=== PATIENT | male | born 1980 | race African-American/Black ===

== ENCOUNTER 2017-11-17 20:46 | Emergency (ER) | payer OTHER ==
[~2017-11-17] VITALS: Ht 175.3 cm; Wt 92.1 kg
== END 2017-11-17 22:51 | disposition home or self-care (01) ==
LOC: ER 20:46
DX: R21 Rash and other nonspecific skin eruption (principal); T78.49XA Other allergy, initial encounter; L03.115 Cellulitis of right lower limb

== ENCOUNTER 2017-12-18 03:59 | Emergency (ER) | payer OTHER ==
[~2017-12-18] VITALS: Ht 175.3 cm; Wt 90.7 kg
[2017-12-18] MEDS ORDERED: INTESTINEX680 M1 PO (04:26)
[2017-12-18] MEDS ORDERED: AMOX-CLAV 875-1 EACH PO (04:26)
[2017-12-18] MEDS ORDERED: KETO10TA2 PO (04:26)
== END 2017-12-18 04:56 | disposition home or self-care (01) ==
LOC: ER 03:59
DX: L02.416 Cutaneous abscess of left lower limb (principal)

== ENCOUNTER 2018-01-31 21:14 | Emergency (ER) | payer OTHER ==
[~2018-01-31] VITALS: Ht 175.3 cm; Wt 86.2 kg
[~2018-01-31 21:14] MED LIST: AMOX-CLAV 875-1 EACH PO; INTESTINEX680 M1 PO; KETO10TA2 PO
== END 2018-01-31 22:44 | disposition home or self-care (01) ==
LOC: ER 21:14
DX: M54.5 Low back pain (principal)

== ENCOUNTER 2018-03-10 06:58 | Emergency (ER) | payer OTHER ==
[~2018-03-10] VITALS: Ht 175.3 cm; Wt 86.2 kg
[2018-03-13] MEDS ORDERED: IBUPROFEN800 MG PO (06:52)
[2018-03-13] MEDS ORDERED: CLINDAMYCIN HC300 MG PO (06:52)
[2018-03-13] MEDS ORDERED: INTESTINEX680 M1 PO (06:52)
== END 2018-03-10 13:34 | disposition home or self-care (01) ==
LOC: ER 06:58
DX: L03.115 Cellulitis of right lower limb (principal)

== ENCOUNTER → 2018-03-13 | Emergency (ER) | payer OTHER ==
[~2018-03-13] VITALS: Ht 175.3 cm; Wt 90.7 kg
[~2018-03-13] MED LIST changes: +CLINDAMYCIN HC300 MG PO; +IBUPROFEN800 MG PO
== END | disposition home or self-care (01) ==
LOC: ER 04:10
DX: L03.115 Cellulitis of right lower limb (principal)